=== PATIENT | male | born 1960 ===

== ENCOUNTER 2021-03-16 08:05 | Outpatient (CLI) | payer SELFPAY ==
--- NOTE | ~2021-03-16 | XR_ITS ---
XR chest 2V DATE: 03/16/2021 09:51 INDICATION: Cough TECHNIQUE: PA and lateral views COMPARISON: None FINDINGS: Normal heart size. No hilar or mediastinal enlargement. No pulmonary infiltrate or consolid ation, pleural effusion or pulmonary vascular congestion or pneumothorax. IMPRESSION: Negative Reviewed, dictated and finalized at location A. [facility] [employer] IMPRESSION: Negative
--- NOTE | 2021-03-16 10:46 | WPDPFTINT ---
PFT Procedure Performed PFT Procedure Performed Plethysmography (Lung Vol) Diffusing Cap (DLCO) Flow Vol Loop Spirometry w/o Bronchodil PFT Interpretation This is a pulmonary function test with spirometry, plethysmography and diffusing capacity. The test was performed and results interpreted in accordance with the 2019 and 2005 ATS/ERS Task Force guidelines respectively using the Global Lung Function Initiative-2012 reference equations. Patient demonstrated good effort and cooperation. Reproducibility criteria were met. The quality of the spirometry maneuver was Grade A. Findings: Spirometry:The contour the inspiratory and expiratory flow tracing are normal. The FVC is 3.37 L, 78% predicted. The FEV1 is 2.78 L, 82% predicted. The FEV1: FVC ratio was 83%. Plethysmography: The total lung capacity is 4.38 L, 66% predicted. Functional residual capacity is 1.49 L, 44% predicted. The residual volume is 0.84 L, 39% predicted. Diffusing capacity: The absolute diffusion capacity is 20.7, 75% predicted. The diffusing capacity corrected for alveolar volume is 4.66, 107% predicted. Impression: There is a mild restrictive ventilatory abnormality with a normal FEV1. The spirometry is normal without evidence of an obstructive abnormality. Diffusing capacity is normal. There are no prior studies for comparison
== END 2021-03-16 08:06 | disposition home or self-care (01) ==
PROVIDERS: Visit Provider Internal Medicine
DX: R05.9 Cough, unspecified (principal); R94.2 Abnormal results of pulmonary function studies
CPT/HCPCS: 71046; 94375; 94726; 94729